=== PATIENT | male | born 1960 | race Caucasian/White ===

== ENCOUNTER 2022-06-18 11:44 | Emergency (ER) | payer SELFPAY ==
[2022-06-18] MEDS ORDERED: Sodium Chloride 0.9% 10 ML Syringe FLUSH PRN (11:47)
[2022-06-18] MEDS ORDERED: Sodium Chloride 0.9% 1,000 ML IV ONE ×2 (12:00→13:06)
[2022-06-18 12:29] LABS: TROPONIN I HIGH SENSITIVITY 6.7 pg/mL (<=60.3)
[2022-06-18 14:00] LABS: CORONAVIRUS COVID-19 NAA POSITIVE (NEGATIVE)
== END 2022-06-18 15:00 | disposition home or self-care (01) ==
LOC: JP.ED 11:44
DX: U07.1 COVID-19 (principal); E11.65 Type 2 diabetes mellitus with hyperglycemia; N17.9 Acute kidney failure, unspecified; E87.1 Hypo-osmolality and hyponatremia; H53.9 Unspecified visual disturbance; E86.0 Dehydration; R41.0 Disorientation, unspecified; Z79.899 Other long term (current) drug therapy
CPT/HCPCS: 0241U; 36415; 70450; 80048; 81001; 82009; 82803; 82947; 83735; 84100; 84484; 85025; 85610; 85730; 93005; 96360; 96361; 99284; J7030

== ENCOUNTER 2022-06-19 11:58 | Emergency (ER) | payer SELFPAY ==
[2022-06-19] MEDS ORDERED: Sodium Chloride 0.9% 10 ML Syringe FLUSH PRN (12:01)
[2022-06-19] MEDS ORDERED: Sodium Chloride 0.9% 1,000 ML IV ONE (12:12)
[2022-06-19 12:47] LABS: ESTIMATED GFR 48 mL/min (>60)
[2022-06-19] MEDS ORDERED: LORazepam 2 MG/ML SDV IVPUSH ONE (13:14)
[2022-06-19] MEDS ORDERED: Ondansetron 4 MG/2 ML SDV ONE (13:32)
[2022-06-19] MEDS ORDERED: Ondansetron 4 MG/2 ML SDV IVPUSH ONE (13:34)
[2022-06-19] MEDS ORDERED: Gadoteridol 279.3 MG/ML 20 ML SDV IV SCH (14:45)
[2022-06-19] MEDS ORDERED: levETIRAcetam in NaCl (iso-os) 1,000 MG in Premix Bag 1 BAG IV ONE ×2 (16:03)
== END 2022-06-19 17:28 ==
LOC: JP.ED 11:58
DX: U07.1 COVID-19 (principal); E11.65 Type 2 diabetes mellitus with hyperglycemia; R45.1 Restlessness and agitation; G93.40 Encephalopathy, unspecified; R56.9 Unspecified convulsions; I10 Essential (primary) hypertension; J45.909 Unspecified asthma, uncomplicated; Z79.899 Other long term (current) drug therapy
CPT/HCPCS: 36415; 70450; 70553; 80053; 80305; 80307; 82803; 83605; 84145; 84439; 84443; 85025; 85379; 85610; 85730; 86140; 93005; 96361; 96365; 96375; 99285; A9579; J1790; J1953; J2060; J2405; J3490; J7030

== ENCOUNTER 2023-03-08 07:55 | Day surgery (SDC) | payer MEDICAID ==
[~2023-03-08 07:55] MED LIST: Midazolam 1 MG/ML 2 ML SDV ONE; Propofol 200 MG/20 ML SDV ONE; fentaNYL 50 MCG/ML SDV ONE
[2023-03-08] MEDS ORDERED: Lactated Ringers 1,000 ML IV SCH (08:30)
[2023-03-08] MEDS ORDERED: Propofol 200 MG/20 ML SDV ONE (09:42)
== END 2023-03-08 10:52 | disposition home or self-care (01) ==
LOC: JP.SDS 07:55
PROVIDERS: ATTEND Student in an Organized Health Care Education/Training Program
DX: K63.5 Polyp of colon (principal); K62.89 Other specified diseases of anus and rectum; K57.30 Diverticulosis of large intestine without perforation or abscess without bleeding; I10 Essential (primary) hypertension; E11.9 Type 2 diabetes mellitus without complications; Z79.899 Other long term (current) drug therapy
CPT/HCPCS: 45380; 88305; J2250; J2704; J3010; J7120